=== PATIENT | male | born 1980 | race Caucasian/White ===

== ENCOUNTER 2018-01-10 14:27 | Emergency (ER) | payer MEDICAID ==
[~2018-01-10] VITALS: Ht 172.7 cm; Wt 79.1 kg
[~2018-01-10 14:27] MED LIST: NO HOME MEDS
[2018-01-10 14:32] VITALS: BP 156/101
[2018-01-10] MEDS ORDERED: ketorolac trometh. 30mg/ml inj. IM ONE (15:40)
== END 2018-01-10 16:06 | disposition home or self-care (01) ==
LOC: ER 14:28
DX: S09.90XA Unspecified injury of head, initial encounter (principal); S19.9XXA Unspecified injury of neck, initial encounter; S01.311A Laceration without foreign body of right ear, initial encounter; G89.29 Other chronic pain; F17.200 Nicotine dependence, unspecified, uncomplicated; F12.90 Cannabis use, unspecified, uncomplicated; Z86.69 Personal history of other diseases of the nervous system and sense organs; Z98.890 Other specified postprocedural states; V49.9XXA Car occupant (driver) (passenger) injured in unspecified traffic accident, initial encounter; Y93.89 Activity, other specified; Y92.410 Unspecified street and highway as the place of occurrence of the external cause; Y99.8 Other external cause status
CPT/HCPCS: 96372; 99283; J1885

== ENCOUNTER → 2018-12-06 | Day surgery (SDC) | payer MEDICARE, MEDICAID ==
[2018-12-02 11:12] LABS: BASOPHILS % (AUTO) 0.5 % (0-1); EOSINOPHILS % (AUTO) 0.3 % (0-6); LYMPHOCYTES # (AUTO) 1.8 X10'3 (1.1-4.8); LYMPHOCYTES % (AUTO) 25.5 % (21-51); MEAN CORPUSCULAR HEMOGLOBIN 32.1 PG (27.0-31.0); MEAN CORPUSCULAR HGB CONC 34.3 g/dL (33.0-36.5); MEAN CORPUSCULAR VOLUME 93.7 FL (78-98); MEAN PLATELET VOLUME 9.2 FL (7.4-10.4); MONOCYTES # (AUTO) 0.6 X10'3 (0-0.9); NEUTROPHILS # (AUTO) 4.6 X10'3 (1.8-7.7); NEUTROPHILS % (AUTO) 64.7 % (42-75); PRE OP HEMOGLOBIN 15.1 g/dL (14.0-17.9); PRE OP PLATELET COUNT 212 X10'3 (140-440); RED CELL DISTRIBUTION WIDTH 13.1 % (11.5-14.5)
[2018-12-02 11:23] LABS: ALBUMIN 4.3 G/DL (3.4-5.0); ALBUMIN/GLOBULIN RATIO 1.2 (1.1-1.5); ALKALINE PHOSPHATASE 51 IU/L (46-116); BLOOD UREA NITROGEN 18 MG/DL (7-18); CALCIUM 9.2 MG/DL (8.5-10.1); CHLORIDE 103 MMOL/L (99-107); CREATININE 1.06 MG/DL (0.60-1.10); PRE OP ALT 30 U/L (30-65); PRE OP ANION GAP 11 (8-16); PRE OP AST 16 U/L (10-37); PRE OP BILIRUB, TOTAL 0.3 MG/DL (0.0-1.0); PRE OP GLUCOSE 92 MG/DL (70-104); PRE OP POTASSIUM 4.5 MMOL/L (3.4-5.1); PRE OP SODIUM 140 MMOL/L (135-145); TOTAL CARBON DIOXIDE 25.6 MMOL/L (24-32); TOTAL PROTEIN 7.8 G/DL (6.4-8.2); eGFR 79 ML/MIN
[2018-12-02 11:36] LABS: PRE OP PROTIME 10.5 SECONDS (9.0-12.0)
[~2018-12-06] VITALS: Ht 172.7 cm; Wt 77.7 kg
[2018-12-06] VITALS (7 sets, daily range): BP systolic 114–165; BP diastolic 56–96
[~2018-12-06] MED LIST changes: +BUPIVAcaine/PF 2.5 mg/ml (0.25%) 30ml vial ONE; +DIVA500T9 PO; +HYDROcodone/acetaminophen 5mg/325mg tablet PO PRN; +LACO200T2 PO; +LIDOcaine 1% 30ml preserv. free vial ONE; +LIDOcaine 2% (20mg/ml) 5ml vial ONE; +LISI40TA4 PO; +MIDAZolam 5mg/5ml vial ONE; -NO HOME MEDS; +SERT25TA PO; +TRAZ-219 PO; +cefazolin/dext.iso 2gm/100 ML IV ONE; +dexamethasone sod phosphate 4mg/ml inj. ONE; +famotidine 20mg tablet PO ONE; +fentaNYL /PF 50mcg/ml 5ml ampule ONE; +fentaNYL/PF 50MCG/1 ML 2ML syringe IV PRN; +glycopyrrolate 0.2mg/ml inj ONE; +hydrALAZINE 20mg/ml inj. IV PRN; +labetalol 20mg/4ml (5mg/ml) syringe IV ONE; +labetalol 20mg/4ml (5mg/ml) syringe IV PRN; +morphine 4 MG/ML inj SYRINge IV PRN; +neostigmine methylsulfate 1 MG/ML 10ml vial ONE; +ondansetron/PF 4mg/2ml inj IV PRN; +ondansetron/PF 4mg/2ml inj ONE; +propofol inj 20 ML IV ONE; +ringers solution, lacted 1,000 ML IV SCH; +rocuronium 10mg/ml inj IV ONE; +sevoflurane 250ml liquid IH ONE
--- NOTE | 2018-12-06 09:18 | NUR ---
Received from OR via , accompanied by Anesthesiologist DR LINO and report given by Anesthesiolgist. PT IS SLEEPING AND NOT RESPONDING TO VOICE AT THIS TIME, SKIN WARM AND PINK, PIV LEFT FA PATENT WITH LR 100ML/HR, 3 BA'S ON ABD CD, NO C/O PAIN, VSS.
== END | disposition home or self-care (01) ==
LOC: PAS 05:32
PROVIDERS: ATTEND Surgery
DX: K40.20 Bilateral inguinal hernia, without obstruction or gangrene, not specified as recurrent (principal); I10 Essential (primary) hypertension; G40.409 Other generalized epilepsy and epileptic syndromes, not intractable, without status epilepticus; G43.909 Migraine, unspecified, not intractable, without status migrainosus; F31.9 Bipolar disorder, unspecified; F41.9 Anxiety disorder, unspecified; Z86.14 Personal history of Methicillin resistant Staphylococcus aureus infection; Z72.89 Other problems related to lifestyle; Z88.8 Allergy status to other drugs, medicaments and biological substances; Z79.899 Other long term (current) drug therapy; Z79.01 Long term (current) use of anticoagulants; Z87.891 Personal history of nicotine dependence; R10.30 Lower abdominal pain, unspecified
CPT/HCPCS: 36415; 49650; 80053; 82948; 85025; 85610; 85730; 93005; C1781; J1100; J2001; J2250; J2405; J2704; J2710; J3010; J3490; J7120; A4215; A4618

== ENCOUNTER 2019-06-16 19:04 | Emergency (ER) | payer MEDICARE, MEDICAID ==
[~2019-06-16] VITALS: Ht 172.7 cm; Wt 75.0 kg
[~2019-06-16 19:04] MED LIST changes: -BUPIVAcaine/PF 2.5 mg/ml (0.25%) 30ml vial ONE; -HYDROcodone/acetaminophen 5mg/325mg tablet PO PRN; -LIDOcaine 1% 30ml preserv. free vial ONE; -LIDOcaine 2% (20mg/ml) 5ml vial ONE; -MIDAZolam 5mg/5ml vial ONE; -TRAZ-219 PO; +TRAZ-256 PO; -cefazolin/dext.iso 2gm/100 ML IV ONE; -dexamethasone sod phosphate 4mg/ml inj. ONE; -famotidine 20mg tablet PO ONE; -fentaNYL /PF 50mcg/ml 5ml ampule ONE; -fentaNYL/PF 50MCG/1 ML 2ML syringe IV PRN; -glycopyrrolate 0.2mg/ml inj ONE; -hydrALAZINE 20mg/ml inj. IV PRN; -labetalol 20mg/4ml (5mg/ml) syringe IV ONE; -labetalol 20mg/4ml (5mg/ml) syringe IV PRN; -morphine 4 MG/ML inj SYRINge IV PRN; -neostigmine methylsulfate 1 MG/ML 10ml vial ONE; -ondansetron/PF 4mg/2ml inj IV PRN; -ondansetron/PF 4mg/2ml inj ONE; -propofol inj 20 ML IV ONE; -ringers solution, lacted 1,000 ML IV SCH; -rocuronium 10mg/ml inj IV ONE; -sevoflurane 250ml liquid IH ONE
[2019-06-16 19:21] VITALS: BP 149/77
[2019-06-16] MEDS ORDERED: HYDROcodone/acetaminophen 5mg/325mg tablet PO ONE (20:10)
[2019-06-16] MEDS ORDERED: HYDR-3965 PO (20:10)
--- NOTE | 2019-06-16 20:18 | NUR ---
Stas wrap applied to right ankle. Pt fitted with crutches. Pt went around ED on crutches w/o any difficutly. Pt's here to drive him home.
== END 2019-06-16 20:28 | disposition home or self-care (01) ==
LOC: ER 19:05
DX: S93.401A Sprain of unspecified ligament of right ankle, initial encounter (principal); G89.29 Other chronic pain; F12.90 Cannabis use, unspecified, uncomplicated; Z88.5 Allergy status to narcotic agent; Z79.899 Other long term (current) drug therapy; X50.1XXA Overexertion from prolonged static or awkward postures, initial encounter; Y93.89 Activity, other specified; Y92.89 Other specified places as the place of occurrence of the external cause; Y99.9 Unspecified external cause status
CPT/HCPCS: 73610; 99283

== ENCOUNTER 2020-09-24 13:39 | Emergency (ER) | payer MEDICARE, MEDICAID ==
[~2020-09-24] VITALS: Ht 170.2 cm; Wt 79.5 kg
[~2020-09-24 13:39] MED LIST changes: +LISI40TA13 PO; -LISI40TA4 PO
[2020-09-24 13:51] VITALS: BP 131/83
[2020-09-24] MEDS ORDERED: ACET-1025 PO (15:34)
== END 2020-09-24 15:35 | disposition home or self-care (01) ==
LOC: ER 13:40
DX: M25.572 Pain in left ankle and joints of left foot (principal); G89.29 Other chronic pain; G40.909 Epilepsy, unspecified, not intractable, without status epilepticus; F12.90 Cannabis use, unspecified, uncomplicated; Z72.89 Other problems related to lifestyle; Z88.0 Allergy status to penicillin; Z79.899 Other long term (current) drug therapy
CPT/HCPCS: 73610; 99283

== ENCOUNTER 2021-12-12 13:05 | Emergency (ER) | payer MEDICARE, MEDICAID ==
[~2021-12-12] VITALS: Ht 172.7 cm; Wt 80.9 kg
[2021-12-12 13:16] VITALS: BP 129/99
[2021-12-12] MEDS ORDERED: CEPH250T PO (14:28)
[2021-12-12] MEDS ORDERED: DOXY100C76 PO (14:28)
== END 2021-12-12 14:52 | disposition home or self-care (01) ==
LOC: ER 13:08
DX: L03.115 Cellulitis of right lower limb (principal); G89.29 Other chronic pain; M54.9 Dorsalgia, unspecified; F12.10 Cannabis abuse, uncomplicated; Z88.5 Allergy status to narcotic agent; Z79.899 Other long term (current) drug therapy
CPT/HCPCS: 99283

== ENCOUNTER 2021-12-21 19:07 | Emergency (ER) | payer MEDICARE, MEDICAID ==
[~2021-12-21] VITALS: Ht 172.7 cm; Wt 80.0 kg
[2021-12-21 19:43] VITALS: BP 126/82
[2021-12-21] MEDS ORDERED: LIDOcaine 40mg/ml topical solution MM ONE (21:10)
[2021-12-21] MEDS ORDERED: gentamicin 0.1% topical ointment 15gm TP SCH (21:10)
[2021-12-21] MEDS ORDERED: LIDOcaine 4% (40 mg/ml) topical solution 50ml MM ONE (21:35)
== END 2021-12-21 22:34 | disposition home or self-care (01) ==
LOC: ER 19:07
DX: S91.001A Unspecified open wound, right ankle, initial encounter (principal); T81.30XA Disruption of wound, unspecified, initial encounter; G89.29 Other chronic pain; M54.50 Low back pain, unspecified; F12.90 Cannabis use, unspecified, uncomplicated; Z87.891 Personal history of nicotine dependence; Z88.5 Allergy status to narcotic agent; X58.XXXA Exposure to other specified factors, initial encounter; Y93.89 Activity, other specified; Y92.89 Other specified places as the place of occurrence of the external cause; Y99.8 Other external cause status
CPT/HCPCS: 87070; 87186; 99283; A6449

== ENCOUNTER 2022-05-16 18:58 | Emergency (ER) | payer MEDICARE, MEDICAID ==
[~2022-05-16] VITALS: Ht 172.7 cm; Wt 86.3 kg
[2022-05-16] MEDS ORDERED: triamcinolone acetonide 40mg/ml inj IM ONE (19:50)
[2022-05-16 20:13] VITALS: BP 129/94
== END 2022-05-16 20:14 | disposition home or self-care (01) ==
LOC: ER 18:59
DX: G89.29 Other chronic pain (principal); T45.0X5A Adverse effect of antiallergic and antiemetic drugs, initial encounter; F12.90 Cannabis use, unspecified, uncomplicated; Z86.69 Personal history of other diseases of the nervous system and sense organs; Z90.89 Acquired absence of other organs; Z72.89 Other problems related to lifestyle; Z88.8 Allergy status to other drugs, medicaments and biological substances; Z79.899 Other long term (current) drug therapy; Y92.89 Other specified places as the place of occurrence of the external cause
CPT/HCPCS: 96372; 99283; J3301

== ENCOUNTER 2022-06-10 09:54 | Emergency (ER) | payer MEDICARE, MEDICAID ==
[~2022-06-10] VITALS: Ht 172.7 cm; Wt 90.0 kg
[2022-06-10 10:00] VITALS: BP 125/88
--- NOTE | 2022-06-10 10:31 | NUR ---
Patient seen in [facility] by provider. Sent back to [facility]. Ke for exam room in main ED. U/S order placed.
== END 2022-06-10 12:08 | disposition home or self-care (01) ==
LOC: ER 09:54
DX: R10.32 Left lower quadrant pain (principal); G89.29 Other chronic pain; M54.50 Low back pain, unspecified; F12.90 Cannabis use, unspecified, uncomplicated; Z88.5 Allergy status to narcotic agent
CPT/HCPCS: 76857; 76870; 93976; 99284

== ENCOUNTER 2022-08-04 19:36 | Emergency (ER) | payer MEDICARE, MEDICAID ==
[~2022-08-04] VITALS: Ht 172.7 cm; Wt 89.0 kg
[2022-08-04 20:28] VITALS: BP 144/101
== END 2022-08-04 20:34 ==
LOC: ER 19:36
DX: S80.211A Abrasion, right knee, initial encounter (principal); S00.212A Abrasion of left eyelid and periocular area, initial encounter; G89.29 Other chronic pain; F12.90 Cannabis use, unspecified, uncomplicated; Z88.5 Allergy status to narcotic agent; Z72.89 Other problems related to lifestyle; Z79.899 Other long term (current) drug therapy; W18.39XA Other fall on same level, initial encounter; Y93.89 Activity, other specified; Y92.89 Other specified places as the place of occurrence of the external cause; Y99.8 Other external cause status
CPT/HCPCS: 99283

== ENCOUNTER 2023-09-03 12:33 | Emergency (ER) | payer MEDICARE, MEDICAID ==
[~2023-09-03] VITALS: Ht 172.7 cm; Wt 89.0 kg
[2023-09-03 12:34] VITALS: BP 122/64; PULSE 66; RESP 18; TEMP 97.2; O2SAT 95
[2023-09-03] MEDS ORDERED: tetanus & diphtheria toxoid (Td) vaccine 0.5ml IMVAC ONE (14:40)
[2023-09-03] MEDS: TETanus/Pertussis (Acell)/Diphther VAC/PF (Tdap-Adult) 0.5ml syringe IMVAC ONE (15:05)
[2023-09-03] MEDS ORDERED: AMOX-580 PO (15:09)
== END 2023-09-03 15:19 | disposition home or self-care (01) ==
LOC: ER 12:34
DX: S61.451A Open bite of right hand, initial encounter (principal); F12.90 Cannabis use, unspecified, uncomplicated; Z88.5 Allergy status to narcotic agent; Z79.2 Long term (current) use of antibiotics; Z79.1 Long term (current) use of non-steroidal anti-inflammatories (NSAID); Z79.899 Other long term (current) drug therapy; W55.01XA Bitten by cat, initial encounter; Y93.89 Activity, other specified; Y92.89 Other specified places as the place of occurrence of the external cause; Y99.8 Other external cause status
CPT/HCPCS: 90471; 90715; 99283

== ENCOUNTER 2024-06-29 07:57 | Emergency (ER) | payer MEDICARE, MEDICAID ==
[~2024-06-29] VITALS: Ht 172.7 cm; Wt 91.3 kg
[2024-06-29] MEDS: LIDOcaine 1% 30ml preserv. free vial IJ STA (09:38)
[2024-06-29] MEDS: methylPREDNISolone acetate 80mg/ml inj**IM only IJ STA (09:38)
[2024-06-29 10:29] VITALS: BP 132/80; PULSE 80; RESP 16; TEMP 98.8; O2SAT 98
== END 2024-06-29 10:30 | disposition home or self-care (01) ==
LOC: ER 07:57
DX: M77.11 Lateral epicondylitis, right elbow (principal); Z90.89 Acquired absence of other organs
CPT/HCPCS: 20552; 73080; 99284

== ENCOUNTER 2024-06-30 10:21 | Emergency (ER) | payer MEDICARE, MEDICAID ==
[~2024-06-30] VITALS: Ht 172.7 cm; Wt 92.8 kg
[2024-06-30 10:27] VITALS: BP 145/93; PULSE 93; RESP 15; O2SAT 97
[2024-06-30] MEDS: dexamethasone 4mg tablet PO ONE (13:38)
[2024-06-30] MEDS: naproxen 500mg tablet PO ONE (13:38)
[2024-06-30 13:41] VITALS: TEMP 97.7
== END 2024-06-30 13:42 | disposition home or self-care (01) ==
LOC: ER 10:21
DX: M77.11 Lateral epicondylitis, right elbow (principal); F12.90 Cannabis use, unspecified, uncomplicated; Z90.89 Acquired absence of other organs
CPT/HCPCS: 93971; 99284; A4565

== ENCOUNTER → 2025-01-04 | Day surgery (SDC) | payer MEDICARE, MEDICAID ==
[2024-12-28 10:35] LABS: MEAN PLATELET VOLUME 8.4 FL (7.4-10.4); PRE OP HEMATOCRIT 42.1 % (42.0-52.0); PRE OP HEMOGLOBIN 14.3 g/dL (14.0-17.9); PRE OP PLATELET COUNT 224 X10'3 (140-440); PRE OP WHITE BLOOD COUNT 5.6 10'3 (4.8-10.8); RED CELL DISTRIBUTION WIDTH 13.3 % (11.5-14.5)
[2024-12-28 10:37] LABS: LEUKOCYTE ESTERASE ,URINE NEGATIVE (Neg); NITRITES, URINE NEGATIVE (Neg); OCCULT BLOOD,URINE TRACE-INTACT (Neg)
[2024-12-28 10:39] LABS: UA COLLECTION TYPE CLN CATCH MIDSTREAM
[2024-12-28 10:45] LABS: MUCUS STRANDS FEW /LPF (Neg); SQUAMOUS EPITHELIAL CELL,UR NONE SEEN /LPF (FEW)
--- NOTE | 2024-12-28 10:47 | ELECTROCARDIOGRAPH REPORT ---
[facility] Test Date: 2024-12-28 Test Time: 10:45:17 Pat Name: ROBERT SWANN Department: [facility]-PRE-OP Patient ID: [facility]-[id number] Room: Gender: M Supervisor Special Services: macarena : 1980 Requested By: NICOLE HARDY Order Number: [id number] Reading MD: Dr. LILIBETH Prado Measurements Intervals Mcdonald Rate: 49 P: 34 WI: 140 QRS: 49 QRSD: 101 T: 37 QT: 425 QTc: 384 Interpretive Statements Sinus bradycardia Electronically Signed On 12-28-2024 17:58:[address] LILIBETH Prado Please click the below link to view image of tracing.
[2024-12-28 10:58] LABS: CREATININE 1.18 MG/DL (0.60-1.10); PRE OP ALT 30 U/L (30-65); PRE OP ANION GAP 6 (8-16); PRE OP AST 20 U/L (10-37); PRE OP BILIRUB, TOTAL 0.2 MG/DL (0.0-1.0); PRE OP GLUCOSE 98 MG/DL (70-104); PRE OP POTASSIUM 4.5 MMOL/L (3.4-5.1); PRE OP SODIUM 139 MMOL/L (135-145); TOTAL CARBON DIOXIDE 28.5 MMOL/L (24-32); eGFR 68 ML/MIN
[2025-01-04] VITALS (12 sets, daily range): BP systolic 108–153; BP diastolic 73–100; PULSE 60–76; RESP 11–16; TEMP 97.6–97.7; O2SAT 94–99
[~2025-01-04] VITALS: Ht 172.7 cm; Wt 91.4 kg
[~2025-01-04] MED LIST changes: +AMIT25TA22 PO; +ARIP10TA87 PO; +BUPIVAcaine/PF 2.5mg/ml (0.25%) 10ml vial ONE; +DEXT1CAP3 PO; -DIVA500T9 PO; +DOCUMENT DATE & TIME OF BETA-BLOCKER PO ONE; +HYDR-3717 PO; +HYDROmorphone/PF 0.2 MG/ML SYRINGE IV PRN; +LACO100T14 PO; -LACO200T2 PO; +LIDOcaine 1%/PF 5ML 10 MG/ML VIAL ONE; +LISI20TA28 PO; -LISI40TA13 PO; +PROP20TA6 PO; +RIME75TA PO; +ROSU10TA72 PO; +SERT-434 PO; -SERT25TA PO; -TRAZ-256 PO; +bacitracin 15gm ointment TP ONE; +dexamethasone sod phosphate 4mg/ml inj. ONE; +enalaprilat 1.25mg/ml 2ml vial IV PRN; +fentaNYL /PF 50mcg/ml 5ml ampule ONE; +fentaNYL/PF 50MCG/1 ML 2ML syringe IV PRN; +hydrALAZINE 20mg/ml inj. IV PRN; +labetalol 20mg/4ml (5mg/ml) syringe IV PRN; +midazolam 1 mg/ML 2ml injection ONE; +morphine 4 MG/ML inj SYRINge IV PRN; +ondansetron/PF 4mg/2ml inj IV PRN; +ondansetron/PF 4mg/2ml inj ONE; +propofol inj 20 ML IV ONE; +ringers solution, lacted 1,000 ML IV SCH
[2025-01-04] MEDS: ceFAZolin 2gm/dext,iso 50mL 50 ML IV ONE (05:30)
[2025-01-04] MEDS: ringers solution, lacted 1,000 ML IV SCH (13:40)
--- NOTE | 2025-01-04 14:53 | ANESTHESIA RECORDS ---
Nerve Block Providers to CC CC: NICOLE HARDY DPM ~ Diagnosis: Nerve Block requested by: NICOLE HARDY DPM Neuraxial/Peripheral Nerve Block requested for Post-operative analgesia by Physician above DIAGNOSIS: Post-operative pain. (Body Area) Shoulder: [ ] Arm: [ ] Hand: [ ] Hip: [ ] Knee: [ ] Ankle: [___left ] Foot: [ ] Leg: [ ] Abdomen: [ ] Other: [ ] Post-operative pain expected to be/is inadequately managed by oral or IV medicines. Regional anesthetic expected to facilitate rehabilitation and/or discharge from facility. Other:[ _] Procedure Performed: Femoral / Saphenous: Left Popliteal Lateral: Left Time out Done?: Yes Time of Time out: 15:40 Procedure Details: PROCEDURE DETAILS: Risks, benefits and alternatives explained Informed consent obtained, and patient wishes to proceed Conscious sedation with indicated monitors Patient positioned, pertinent anatomy defined, sterile technique used Needle used: [ ] 3 1/8 inch Stimuplex Ultra 22ga [ ] 4 inch Stimuplex Ultra 20ga [ x] 6 inch Stimuplex Ultra 20ga [ ] 6 inch, Quikbloc over the needle catheter set 20ga [ ] 4 inch Quikbloc over the needle catheter set 20ga [ ]Other: [ ] Loss of twitch @ [__.05 ]mA [X ] Single Injection [ ] Catheter Ultrasound Guidance Used: [ X] Yes [ ] No Attempts:[ 1 ] Medicines injected: [ ]Clonidine Amt:[ ] [ X ]Dexamethasone Amt:[ 2mg ] [ X ]Ropivacaine Amt:[__0.5% 60 c.c ] [ ]Bupivacaine Amt:[ ] [ ]Lidocaine Amt:[ ] [ ]Exparel 1.33%:[ ] [ ]Epinephrine Amt[ ] [ ]Other: [ ] Intermittent aspiration during local anesthetic administration No symptoms of intraneural or intravenous injection Patient tolerated procedure well Comments Left sciatic nerve block: Left posterir thigh is examined with ultrasound and Popliteal vessels,Sciatic nerve bundle is identified. Needle is placed near the bundle,upon stimulation foot contractions noted. 35 c.c local mix is injected. spread is noted.Ultrasound image is captured and documented. Left Adductor canal block: Left mid medial thigh is examined, Adductor canal and vessels are identified. Needle is in the canal.After negative aspirations,25 c.c local mix is injected. spread is noted. Ultrasound image is captured,documented. BASSEM DU MD Jan 04, 2025 14:53
--- NOTE | 2025-01-04 19:26 | OPERATIVE REPORT ---
DATE OF SURGERY: 01/04/2025 DICTATING PHYSICIAN: ARMIN TOVAR DPM PREOPERATIVE DIAGNOSES: Left ankle pain, left foot pain, left ankle instability, left ankle syndesmosis pain and instability, and chronic ankle issues of the left. POSTOPERATIVE DIAGNOSES: Left ankle pain, left foot pain, left ankle instability, left ankle syndesmosis pain and instability, and chronic ankle issues of the left. PROCEDURES: * Ankle arthroscopy with synovectomy. * Brostrom lateral ankle ligament revision reconstruction via an internal brace technique. * CFL augmentation. * Peroneal tendon tenosynovectomy with removal of low-lying muscle belly. * Syndesmosis stress examination. * Syndesmosis stabilization with button fixation. SURGEON: Armin Tovar DPM PRODUCT CRAFTSMAN: Jersey Lebron DPM fellow, assistance was needed to decrease tourniquet time and help with efficiency and retraction throughout the entirety of the procedure. ANESTHESIA: General anesthesia. HEMOSTASIS: Thigh tourniquet at 275 mmHg. FINDINGS: None. COMPLICATIONS: None. SPECIMENS: None. ESTIMATED BLOOD LOSS: Less than 15 mL. HARDWARE: DJO 3.5 mm locking screw and a locking plate and a suture button and three Ossio anchors. Three of them were 4.75 mm in diameter. INDICATIONS: The patient presented to the office with the above-listed complaints, which have been unresponsive to conservative treatment options. Thus, surgical options have been offered along with all potential risks, complications, and surgical outcomes being explained to the patient's level of understanding. No guarantees were given. Clinical and radiographic data correlate with the above diagnosis. The patient was inherited by me, by my partner. I did evaluate the patient clinically and radiographically as well as advanced imaging and I did offer the patient multiple options. I did perform a diagnostic block into the patient's syndesmosis region as he seemed to have some discomfort within this area. He did call back and state that the injection did help for a few days, but did not seem to take all of his pain away. I told him that there could be a potential for a syndesmosis fusion, but this would be very stiff. He understands this, so we would stress him under the operating room, OR table, and fluoroscopic imaging in order to determine our next steps. He was fully on board with this agreement and understanding and wished to proceed. DESCRIPTION OF PROCEDURE: The patient was brought to the operating room and placed on the operating table in the supine position. The patient was induced under general anesthesia. The foot and ankle were prepped and draped in the usual aseptic fashion. A previously applied thigh tourniquet was then inflated to 275 mmHg after a timeout was called and preoperative antibiotics were given and dosed appropriately. The patient's thigh was placed in the thigh noel and the patient's ankle was distracted with a goal ankle distractor and we proceeded with our ankle arthroscopy. After this, we then identified the patient's ankle joint and we identified the anterolateral and anteromedial portals of the ankle joint and we made small portal incisions with a #15 blade and then inserted our 2.7 mm 30-degree camera and our 2.5 mm shaver and went through our 21-point examination. The patient did have acute and chronic synovitic tissue of the ankle joint, specifically anterior to medial and anterolaterally. There was also some fibrotic outpouching of the syndesmosis region. We were able to place the shaver up the syndesmosis for a positive drive-through sign signifying instability. After this, we then switched our instrumentation into the other portals and continued our debridement until all the visualized synovitic tissue and fibrotic tissue was carefully excised and debrided. We then continued our debridement until all the 21 points were examined. The patient's cartilage was largely intact. We then removed our instrumentation and then continued our procedures. The patient was taken out of the ankle joint distractor and thigh noel and placed on a sterile stack of towels. This is where we continued for our Brostrom lateral ankle ligament reconstruction and revision as well as our CFL repair and peroneal tendon repair. We did stress the patient's ankle joint using fluoroscopic imaging. We performed a syndesmosis stress examination and there was instability and diastasis at the tib-fib complex. Therefore, we made an incision that was over the fibula for access anteriorly and posteriorly. We continued our dissection down over the lateral aspect of the ankle. We first started by dissecting over the peroneal tendon region. The peroneal tendon sheath was then opened up to the operative field. It was noted that there was significant tenosynovitis within this region. There was a lot of fluid that we flushed away. The patient had a significant amount of tenosynovitic fluid and tissue, even bands of adhesions around the patient's peroneal tendons. We spent a large amount of time debriding this tenosynovitic fluid and tissue. We even cut the low-lying muscle belly of the peroneus brevis tendon until it was above our ankle joint. The tendons were largely intact. There was some thickening and bulbous structure to the peroneus longus tendon, but this was not very significant requiring repair or debridement. After this, we then brought our attention to the anterior aspect of the patient's ankle of the anterior distal fibula. It was noted that there was a significant amount of what appeared to be degenerative fibrotic scar tissue of the capsule. There were old nonabsorbable stitches with the Arthrex system. We did remove this appropriately and we did dissect until we reached the fibula. We pulled out whatever we could into the fibula where the old anchors were. This was the hardware removal. After this, we then continued to dissect past the level of the fibrotic tissue of the ankle joint. Even before this, we stressed the patient's ankle in an anterior drawer and talar tilt and there was both positive. The patient also had significant subtalar joint instability with attenuated tissue within this region. After this, we then used intraoperative fluoroscopic imaging as it was decided that an internal brace technique was going to be the most appropriate. We then identified the lateral talar body and aiming in a 45-degree, 45-degree fashion, we then placed a drill for a 4.75 mm Ossio anchor, which was then drilled into the talus. This was a loaded anchor. We then performed a agbtwnv-eev-ilgonul drill of the patient's fibula in the appropriate alignment. We then pulled the sutures through the fibula and we held the patient's ankle in a dorsiflexed and everted and posteriorly translated position and we tensioned these appropriately and then we placed a 4.75 anchor into the fibula with excellent tension of the patient's ankle joint. After this, we then stressed the patient's subtalar joint and it was noted that there was instability, so therefore, we used an additional strand of the talar implant and then we used an intraoperative fluoroscopic image in order to identify the lateral calcaneus. We drilled for another 4.75 anchor into the lateral calcaneus in line with our CFL. We brought the additional suture from the talus entering into the calcaneus and then we held the patient's subtalar joint in a reduced position and we dunked this anchor into an appropriate position. We then stressed the patient's ankle and subtalar joint and it was noted that there was excellent stability. After this, we then brought our attention to the lateral fibula for syndesmosis stabilization. We lined up a two-hole plate over the lateral aspect of the fibula and then we placed a 3.5 mm screw at the inferior hole and then the suture button was then drilled across the tib-fib complex in the appropriate fashion using intraoperative fluoroscopic imaging as our guide. We made an additional incision medially. We then threaded this suture button medially and laterally and then we tensioned this down and tightened it down while the foot was held in a dorsiflexed position. After this, we then stressed the patient's ankle joint and it was noted that there was excellent stability in all of the planes. The patient's ankle and subtalar joint and syndesmosis joint were excellently stable. It was noted that upon dissection, we do believe that some of this injection that I gave preoperatively probably helped because he had so much synovitic tissue as well as degenerative capsule. We did debride much of the capsule that was irregular and not healthy. We then reinforced all of our repairs with #0 Vicryl. We replaced our retinacular peroneal tissue in the appropriate position and repaired with #0 Vicryl. After this, we then placed the patient's ankle joint in dorsiflexion and plantarflexion and there was noted to be excellent stability, so therefore, we took final fluoroscopic imaging and then we closed all of our incisions after flushing with copious amounts of sterile normal saline. 3-0 Vicryl was used to closure of the deep fascia and superficial fascia. Skin was closed in a horizontal mattress technique using 3-0 nylon. The incisions were then dressed with triple antibiotic ointment followed by Adaptic, 4 x 4s, and Webril. The patient's foot was then placed into a well-padded posterior splint with the foot held in a dorsiflexed and everted position. The tourniquet was deflated and the patient was taken out of general anesthesia and placed in the PACU with vital signs stable and vascular status intact to the operative foot. The patient is going to be nonweightbearing to the operative foot and is instructed to follow up with me in approximately 1-2 weeks after surgery. The entire case was performed in a teaching fashion. I was available pre and postoperatively and answered questions from the patient and his family. ARMIN TOVAR DPM TID: [id number] RECEIPT: [id number] JOSE/THERESA
== END | disposition home or self-care (01) ==
LOC: PAS 12:40
PROVIDERS: ATTEND Podiatrist Foot & Ankle Surgery
DX: M25.372 Other instability, left ankle (principal); M25.572 Pain in left ankle and joints of left foot; G89.18 Other acute postprocedural pain; I10 Essential (primary) hypertension; F41.9 Anxiety disorder, unspecified; F32.A Depression, unspecified; Z79.2 Long term (current) use of antibiotics; Z79.82 Long term (current) use of aspirin; Z79.899 Other long term (current) drug therapy; Z90.89 Acquired absence of other organs; Z98.890 Other specified postprocedural states; Z88.8 Allergy status to other drugs, medicaments and biological substances
CPT/HCPCS: 27698; 27829; 36415; 64445; 64447; 73600; 80053; 81001; 82948; 85025; 93005; A4618; A6222; A6402; A7000; C1713; J1100; J2250; J2405; J2704; J3010; J3490; J7120; Z7506; Z7508; Z7512; Z7610; 76000; A6449

== ENCOUNTER 2025-03-21 09:02 | Emergency (ER) | payer MEDICARE, MEDICAID ==
[~2025-03-21] VITALS: Ht 172.7 cm; Wt 93.2 kg
[~2025-03-21 09:02] MED LIST changes: -BUPIVAcaine/PF 2.5mg/ml (0.25%) 10ml vial ONE; -DOCUMENT DATE & TIME OF BETA-BLOCKER PO ONE; -HYDROmorphone/PF 0.2 MG/ML SYRINGE IV PRN; -LIDOcaine 1%/PF 5ML 10 MG/ML VIAL ONE; -ROSU10TA72 PO; +ROSU10TA98 PO; -bacitracin 15gm ointment TP ONE; -dexamethasone sod phosphate 4mg/ml inj. ONE; -enalaprilat 1.25mg/ml 2ml vial IV PRN; -fentaNYL /PF 50mcg/ml 5ml ampule ONE; -fentaNYL/PF 50MCG/1 ML 2ML syringe IV PRN; -hydrALAZINE 20mg/ml inj. IV PRN; -labetalol 20mg/4ml (5mg/ml) syringe IV PRN; -midazolam 1 mg/ML 2ml injection ONE; -morphine 4 MG/ML inj SYRINge IV PRN; -ondansetron/PF 4mg/2ml inj IV PRN; -ondansetron/PF 4mg/2ml inj ONE; -propofol inj 20 ML IV ONE; -ringers solution, lacted 1,000 ML IV SCH
--- NOTE | 2025-03-21 09:49 | RADIOLOGY REPORT ---
CLINICAL INDICATION: ANKLE PAIN TECHNIQUE: 3 radiographic views of the left ankle were obtained. Comparison: DI ANKLE, COMPLETE(3VW MIN) on DOS: 02/24/24, ANKLE, COMPLETE(3VW MIN) on DOS: 09/24/20, ANKLE, COMPLETE(3VW MIN) on DOS: 06/16/19 FINDINGS/IMPRESSION: There is no evidence of acute fracture or dislocation. Soft tissue swelling about the left knee lateral ankle. Postsurgical changes are visualized in the distal fibula. The visualized joint space is well maintained. The alignment is anatomical. There is no radiopaque foreign body.
[2025-03-21] MEDS ORDERED: IBUP-1986 PO (09:58)
--- NOTE | 2025-03-21 09:58 | Physician Documentation ---
History of Present Illness ~ Chief Complaint: Ankle pain Stated Complaint: ANKLE PAIN Time Seen by MD: 09:32 Primary Medical Doctor: [facility] Source: patient Mode of Arrival: POV Exam Limitations: no limitations HPI 45-year-old male with significant ankle Orthopedics surgical history having approximately 4 different ankle surgeries the latest 1 being on January 04, [address] Tovar. Patient states that this morning when he was getting out of bed he rolled his left ankle causing pain and swelling. Patient states that his ankle since his multiple surgeries has felt unstable. Tetanus witin 5 years: Yes Medication Reconciliation Allergies: Coded Allergies: No Known Allergies (Unverified , 03/21/25) Scheduled Amitriptyline Hcl (Amitriptyline Hcl), 25 MG PO DAILY, (Reported) Aripiprazole (Aripiprazole), 1 TAB PO DAILY, (Reported) Dextromethorphan HBr/Quinidine (Nuedexta 20-10 mg Capsule), 1 TAB PO BID, (Reported) Hydroxyzine Hcl* (Atarax*), 1 TAB PO BID, (Reported) Lacosamide (Lacosamide), 300 MG PO BID, (Reported) Lisinopril (Lisinopril), 1 TAB PO HS, (Reported) Propranolol Hcl (Propranolol Hcl), 20 MG PO BID, (Reported) Rimegepant Sulfate (Nurtec Odt), 1 TAB PO Q48H, (Reported) Rosuvastatin Calcium (Rosuvastatin Calcium), 1 TAB PO HS, (Reported) Sertraline HCl (Sertraline HCl), 200 MG PO DAILY, (Reported) Past Medical History Past Medical History: Seizures, Chronic Back Pain Past Surgical History: tonsillectomy, other Alcohol Use: Occasionally Drug Use: marijuana Lives with: Spouse Lives In: Home Occupation: employed Review of Systems All Other Systems at this time: Reviewed and Negative Musculoskeletal: Reports: see HPI Physical Exam Vital Signs: RN Vital Signs have been reviewed: Yes, Temperature: 97.8, Source: Oral, Heart Rate: 87, Respiratory Rate: 18, BP: 133/94, Pulse Oximetry: 98, Weight: 93.180 Oxygen Flow Rate: 0 Physical Exam General: Alert, no apparent distress. HEENT: moist mucous membranes. Neck: Full range of motion. Respiratory: No respiratory distress speaking in full sentences Chest: No accessory muscle use. Cardiovascular: Appears well perfused Musculoskeletal: Left ankle with moderate swelling and ecchymosis +2 pedal pulse very limited range of motion did pain surgical scar to the lateral aspect of the heel well healed Neurologic: Oriented x4. Psychiatric: Normal mood and affect. Skin: Normal color, warm and dry. No edema, no ecchymosis. Progress Results/Orders Results/Orders Vital Signs 03/21/25 09:15 Temp 97.8 Pulse 87 Resp 18 B/P (MAP) 133/94 Pulse Ox 98 O2 Flow Rate 0 EKG/XRAY/CT/US/VASC/MRI Bone/Soft Tissue X-Ray (Ext.) : Additional Comment CLINICAL INDICATION: ANKLE PAIN TECHNIQUE: 3 radiographic views of the left ankle were obtained. Comparison: DI ANKLE, COMPLETE(3VW MIN) on DOS: 02/24/24, ANKLE, COMPLETE(3VW MIN) on DOS: 09/24/20, ANKLE, COMPLETE(3VW MIN) on DOS: 06/16/19 FINDINGS/IMPRESSION: There is no evidence of acute fracture or dislocation. Soft tissue swelling about the left knee lateral ankle. Postsurgical changes are visualized in the distal fibula. The visualized joint space is well maintained. The alignment is anatomical. There is no radiopaque foreign body. Medical Decision Making Additional information obtaine: N/A Findings Due to his previous surgical history x-rays to evaluate for any osseous abnormality including fracture. General Diff Dx:Considerations: Include: Other Knee Diff Dx:Considerations: Include: Other Ankle Diff Dx:Considerations: Include: Abrasion, Arthritis, Contusion, Fracture-fibula, Fracture-tibia, Sprain Foot Diff Dx:Considerations: Include: Other Toe Diff Dx:Considerations: Include: Other Departure Time of Disposition: 09:57 Disposition: 01 HOME / SELF CARE / HOMELESS Impression: Primary Impression: Sprain of ankle Condition: Stable Discharge Instructions: Ankle Sprain Additional Instructions: The x-ray indicates no fracture or hardware disruption. Staying walking boot and talk to [facility] Dr. Tovar for further treatment and evaluation. Referrals: NO PRIMARY CARE PROVIDER (PCP) Prescriptions Ibuprofen (Ibuprofen) 800 Mg Tablet 1 TAB PO Q8H for pain for 10 Days, #30 TAB 0 Refills Prov: CLAUDIA CRAIG NP 03/21/25 Education Educated: Patient Educated regarding: diagnosis, treatment, need for follow up Signature Scribe Signature: No scribe Attestation: The note accurately reflects work and decisions made by me.Claudia PICKENS 03/21/25 09:56 CLAUDIA CRAIG NP Mar 21, 2025 09:58
[2025-03-21] MEDS: HYDROcodone/acetaminophen 10/325mg tab PO ONE (10:09)
[2025-03-21 10:35] VITALS: BP 123/72; PULSE 72; RESP 16; TEMP 97.8; O2SAT 99
== END 2025-03-21 10:39 | disposition home or self-care (01) ==
LOC: ER 09:03
DX: S93.492A Sprain of other ligament of left ankle, initial encounter (principal); G89.29 Other chronic pain; F12.90 Cannabis use, unspecified, uncomplicated; Z79.899 Other long term (current) drug therapy; Z72.89 Other problems related to lifestyle; Z90.89 Acquired absence of other organs; Z98.890 Other specified postprocedural states; X58.XXXA Exposure to other specified factors, initial encounter; Y93.89 Activity, other specified; Y92.89 Other specified places as the place of occurrence of the external cause; Y99.8 Other external cause status
CPT/HCPCS: 73610; 99283